=== PATIENT | male | born 1995 | race Hispanic/Latino ===

== ENCOUNTER → 2024-10-22 | Day surgery (SDC) | payer OTHER ==
[~2024-10-22] MED LIST: FAMOTIDINE20 MG PO; FENTANYL CITRATE/PF 100MCG/2 ML INJ ONE; GLYCOPYRROLATE INJ 0.2 MG/ML VIAL ONE; LIDOCAINE HCL 2% LOCAL INJ 5 ML SDV VIAL INJ ONE; METOCLOPRAMIDE HCL 10 MG/2ML VIAL ONE; OMEPRAZOLE40 MG PO; PROPOFOL IV EMULSION 10 MG/ML 20 ML VIAL ONE
[2024-10-22] MEDS: LACTATED RINGER'S 1,000 ML ONE (10:25)
[2024-10-22 12:15] VITALS: TEMP 97.9
[2024-10-22 12:45] VITALS: BP 127/91; PULSE 79; RESP 16; O2SAT 99
== END | disposition home or self-care (01) ==
LOC: OR 10:06
PROVIDERS: ATTEND Internal Medicine Gastroenterology
DX: K29.50 Unspecified chronic gastritis without bleeding (principal); K20.90 Esophagitis, unspecified without bleeding; K21.9 Gastro-esophageal reflux disease without esophagitis; Z71.3 Dietary counseling and surveillance; E66.01 Morbid (severe) obesity due to excess calories; Z71.89 Other specified counseling; Z68.29 Body mass index [BMI] 29.0-29.9, adult; Z86.19 Personal history of other infectious and parasitic diseases
CPT/HCPCS: 43239; 88305; 88342; J2003; J2470; J2765